=== PATIENT | male | born 1980 | race Caucasian/White ===

== ENCOUNTER 2019-06-20 02:31 | Emergency (ER) | payer OTHER ==
[~2019-06-20] VITALS: Ht 182.9 cm; Wt 107.0 kg
[~2019-06-20 02:31] MED LIST: IBUP800T48 PO; TAMS-14 PO
[2019-06-20 02:36] VITALS: Ht 182.9 cm; Wt 107.0 kg
[2019-06-20] MEDS ORDERED: KETOROLAC 30 MG INJ IM STA (02:48)
[2019-06-20 04:16] VITALS: BP 132/89; PULSE 89; RESP 16
== END 2019-06-20 04:17 | disposition home or self-care (01) ==
LOC: E/R 02:31
DX: N43.3 Hydrocele, unspecified (principal)
CPT/HCPCS: 76870; 81001; 96372; J1885; Z7502